=== PATIENT | female | born 1945 | race Caucasian/White ===

== ENCOUNTER → 2016-06-20 | Outpatient (CLI) | payer MEDICARE, BC ==
[~2016-06-20] MED LIST: ALEVE 220MG220 MG PO; BIOTIN1 MG PO; PRAVACHOL 40MG40 MG PO; PREDNISONE10 MG PO; WELLBUTRIN 75MG75 MG PO; ZYLOPRIM 300MG300 MG PO
== END ==
LOC: MC.RAD 08:17
DX: Z12.31 Encounter for screening mammogram for malignant neoplasm of breast (principal); Z80.3 Family history of malignant neoplasm of breast

== ENCOUNTER → 2016-08-08 | Outpatient (CLI) | payer MEDICARE, BC | LOC: COL.RAD 09:38 | DX: R10.32 Left lower quadrant pain (principal) ==

== ENCOUNTER → 2017-10-24 | Outpatient (CLI) | payer MEDICARE, BC ==
[~2017-10-24] VITALS: Ht 162.6 cm; Wt 89.2 kg
[~2017-10-24] MED LIST changes: +ASPIRIN E.C. 8181 MG PO; +COZAAR100 MG PO; +KLONOPIN 1MG1 MG PO; +PRILOSEC 20MG20 MG PO; +TYLENOL 8 HR PO; +VITAMIN B122500 MCG SL; +VITAMIN D 1001000 IU PO; +WELLBUTRIN XL300 M1 PO
[2017-10-24 06:40] VITALS: BP 129/85; PULSE 86
[2017-10-24 07:53] VITALS: BP 123/74; PULSE 86
[2017-10-24 07:54] VITALS: BP 116/76; PULSE 88
[2017-10-24 07:55] VITALS: BP 121/73; PULSE 89
== END ==
LOC: COL.CARD 06:21
DX: I25.89 Other forms of chronic ischemic heart disease (principal)
CPT/HCPCS: A9502; J2785

== ENCOUNTER 2017-10-31 06:09 | Day surgery (SDC) | payer MEDICARE, BC ==
[2017-10-31] VITALS (12 sets, daily range): BP systolic 100–145; BP diastolic 61–92; PULSE 67–86; TEMP 97.5
[~2017-10-31] VITALS: Ht 162.6 cm; Wt 88.8 kg
[~2017-10-31 06:09] MED LIST changes: +KLONOPIN 0.5MG0.5 MG PO; -KLONOPIN 1MG1 MG PO
[2017-10-31 07:32] LABS: HEMATOCRIT 38.9 % (37.0-47.0); HEMOGLOBIN 13.1 g/dl (12.5-16.0); MEAN CELL VOLUME 98 fl (80.0-100.0); MEAN CORPUSCULAR HEMOGLOBIN 33 pg (27.0-31.0); MEAN CORPUSCULAR HGB CONC 34 g/dl (33.0-37.0); MEAN PLATELET VOLUME 10.7 fl (7.4-10.4); PLATELET COUNT 221 K/mm3 (130-400); RED BLOOD COUNT 3.96 M/mm3 (4.10-5.30); REDCELL DISTRIBUTION WIDTH-CV 13.2 % (11.5-14.5)
[2017-10-31 07:34] LABS: INR 1.1 (0.8-3.0); PROTHROMBIN TIME 12.1 SECONDS (9.7-12.8)
[2017-10-31 07:41] LABS: CALCIUM 9.2 mg/dL (8.4-10.2); CREATININE, serum 0.73 mg/dL (0.52-1.25); POTASSIUM 3.9 mmol/L (3.4-5.0)
[2017-10-31] MEDS ORDERED: NITROSTAT0.4 MG/TAB SL (08:23)
== END 2017-10-31 15:23 | disposition home or self-care (01) ==
LOC: COL.CAR 06:09
PROVIDERS: Internal Medicine Cardiovascular Disease
DX: R07.9 Chest pain, unspecified (principal); R94.39 Abnormal result of other cardiovascular function study; E78.5 Hyperlipidemia, unspecified; I10 Essential (primary) hypertension; E66.9 Obesity, unspecified; I08.1 Rheumatic disorders of both mitral and tricuspid valves; K21.9 Gastro-esophageal reflux disease without esophagitis; Z88.2 Allergy status to sulfonamides; Z88.8 Allergy status to other drugs, medicaments and biological substances
CPT/HCPCS: C1760; C1894; J2250; J3010; Q9967

== ENCOUNTER → 2017-11-28 | Outpatient (CLI) | payer MEDICARE, BC ==
[~2017-11-28] MED LIST changes: +NITROSTAT0.4 MG/TAB SL
== END ==
LOC: MC.RAD 14:17
DX: Z12.31 Encounter for screening mammogram for malignant neoplasm of breast (principal)

== ENCOUNTER → 2019-01-12 | Outpatient (CLI) | payer MEDICARE, BC | LOC: MC.RAD 11:27 | DX: Z12.31 Encounter for screening mammogram for malignant neoplasm of breast (principal) ==

== ENCOUNTER → 2020-01-14 | Outpatient (CLI) | payer MEDICARE, BC | LOC: MC.RAD 08:45 | DX: Z12.31 Encounter for screening mammogram for malignant neoplasm of breast (principal) ==

== ENCOUNTER 2020-12-11 05:34 | Inpatient (IN) | payer MEDICARE, BC ==
[~2020-12-11] VITALS: Ht 162.6 cm; Wt 89.6 kg
[2020-12-11 06:01] LABS: BASO % 0.1 % (0.0-2.0); GRAN # 13.7 (1.4-6.5); HEMOGLOBIN 16.5 g/dl (12.5-16.0); LYMPH # 0.8 (1.2-3.4); LYMPH % 5.2 % (20.0-51.0); MEAN CELL VOLUME 98 fl (80.0-100.0); MEAN CORPUSCULAR HEMOGLOBIN 32 pg (27.0-31.0); MEAN CORPUSCULAR HGB CONC 33 g/dl (33.0-37.0); MEAN PLATELET VOLUME 10.9 fl (7.4-10.4); MONO # 0.8 (0.1-0.6); MONO % 5.2 % (1.7-9.3); PLATELET COUNT 255 K/mm3 (130-400); RED BLOOD COUNT 5.12 M/mm3 (4.10-5.30); REDCELL DISTRIBUTION WIDTH-CV 13.5 % (11.5-14.5)
[2020-12-11 06:14] LABS: ALBUMIN 4.6 gm/dL (3.5-5.0); BILIRUBIN,TOTAL 0.4 mg/dL (0.0-1.0); CALCIUM 9.5 mg/dL (8.4-10.2); CREATININE, serum 0.91 (0.52-1.25); POTASSIUM 4.1 mmol/L (3.4-5.0)
[2020-12-11 07:18] LABS: COLLECTION METHOD CLEAN CATCH
[2020-12-11 07:31] LABS: MUCOUS Present /lpf; PH 5 (5-8); SQUAMOUS EPITHELIAL 0-2 /hpf; URINE APPEARANCE Hazy; URINE BACTERIA None Seen /hpf; URINE BILIRUBIN Negative (NEGATIVE); URINE BLOOD 2+ (NEGATIVE); URINE COLOR Amber; URINE GLUCOSE Negative (NEGATIVE); URINE KETONE 1+ (NEGATIVE); URINE LEUKOCYTE ESTERASE Negative (NEGATIVE); URINE NITRATE Negative (NEGATIVE); URINE PROTEIN(semi-quant) 2+ (NEGATIVE); URINE RBC None Seen /hpf; URINE UROBILINOGEN Negative (NEGATIVE)
[2020-12-11] MEDS ORDERED: LIPITOR 10MG10 MG PO (15:05)
[2020-12-11] MEDS ORDERED: CELEBREX 1100 MG/CAP PO (15:06)
[2020-12-11] MEDS ORDERED: WELLBUTRIN SR100 M1 PO (15:06)
[2020-12-11] MEDS ORDERED: NATURAL E400 IU PO (15:09)
[2020-12-11 16:18] VITALS: BP 128/74; PULSE 94; TEMP 98.9
[2020-12-11 19:56] VITALS: BP 123/69; PULSE 93; TEMP 99.7
[2020-12-12 00:30] VITALS: BP 105/58; PULSE 90; TEMP 99.1
[2020-12-12 03:57] VITALS: BP 140/70; PULSE 81; TEMP 98.8
[2020-12-12 08:01] VITALS: BP 119/63; PULSE 84; TEMP 98.6
[2020-12-12 09:28] LABS: CALCIUM 8.1 mg/dL (8.4-10.2); CREATININE, serum 0.7 (0.52-1.25); POTASSIUM 3.7 mmol/L (3.4-5.0)
[2020-12-12 09:33] LABS: BASO % 0.4 % (0.0-2.0); EOS % 0.5 % (0-4.0); GRAN % 67.3 % (42.2-75.2); LYMPH # 1.5 (1.2-3.4); LYMPH % 20.1 % (20.0-51.0); MEAN CELL VOLUME 98 fl (80.0-100.0); MEAN CORPUSCULAR HEMOGLOBIN 33 pg (27.0-31.0); MEAN CORPUSCULAR HGB CONC 33 g/dl (33.0-37.0); MEAN PLATELET VOLUME 11.5 fl (7.4-10.4); MONO # 0.8 (0.1-0.6); MONO % 11.2 % (1.7-9.3); PLATELET COUNT 167 K/mm3 (130-400); REDCELL DISTRIBUTION WIDTH-CV 13.4 % (11.5-14.5)
[2020-12-12 12:03] VITALS: BP 113/71; PULSE 71; TEMP 98.5
[2020-12-12 17:31] VITALS: BP 128/71; PULSE 73; TEMP 98.7
[2020-12-12 20:30] VITALS: BP 131/73; PULSE 74; TEMP 98.9
[2020-12-13] VITALS (7 sets, daily range): BP systolic 118–137; BP diastolic 52–70; PULSE 68–86; TEMP 98–98.6
[2020-12-13 08:27] LABS: BASO % 0.4 % (0.0-2.0); EOS # 0.2 (0.0-0.7); EOS % 2.1 % (0-4.0); GRAN # 3.8 (1.4-6.5); GRAN % 54.5 % (42.2-75.2); HEMATOCRIT 46.5 % (37.0-47.0); LYMPH # 2.3 (1.2-3.4); LYMPH % 32.8 % (20.0-51.0); MEAN CELL VOLUME 97 fl (80.0-100.0); MEAN CORPUSCULAR HEMOGLOBIN 32 pg (27.0-31.0); MEAN CORPUSCULAR HGB CONC 33 g/dl (33.0-37.0); MEAN PLATELET VOLUME 11.3 fl (7.4-10.4); MONO # 0.7 (0.1-0.6); MONO % 9.8 % (1.7-9.3); PLATELET COUNT 265 K/mm3 (130-400); RED BLOOD COUNT 4.78 M/mm3 (4.10-5.30); REDCELL DISTRIBUTION WIDTH-CV 13.4 % (11.5-14.5)
[2020-12-13 08:31] LABS: HEMOGLOBIN 15.4 g/dl (12.5-16.0)
[2020-12-13 08:42] LABS: CALCIUM 9.2 mg/dL (8.4-10.2); CREATININE, serum 0.67 (0.52-1.25); POTASSIUM 3.6 mmol/L (3.4-5.0)
[2020-12-14 03:35] VITALS: BP 129/71; PULSE 72; TEMP 97.6
[2020-12-14 07:03] LABS: BASO % 0.3 % (0.0-2.0); EOS # 0.2 (0.0-0.7); EOS % 2.3 % (0-4.0); GRAN # 3.8 (1.4-6.5); GRAN % 54.8 % (42.2-75.2); HEMATOCRIT 37.3 % (37.0-47.0); LYMPH # 2.1 (1.2-3.4); LYMPH % 30.1 % (20.0-51.0); MEAN CELL VOLUME 98 fl (80.0-100.0); MEAN CORPUSCULAR HEMOGLOBIN 33 pg (27.0-31.0); MEAN CORPUSCULAR HGB CONC 33 g/dl (33.0-37.0); MEAN PLATELET VOLUME 11.6 fl (7.4-10.4); MONO # 0.8 (0.1-0.6); MONO % 12.1 % (1.7-9.3); PLATELET COUNT 226 K/mm3 (130-400); REDCELL DISTRIBUTION WIDTH-CV 13.4 % (11.5-14.5)
[2020-12-14 07:05] LABS: HEMOGLOBIN 12.4 g/dl (12.5-16.0)
[2020-12-14 07:12] LABS: CALCIUM 8.4 mg/dL (8.4-10.2); CREATININE, serum 0.6 (0.52-1.25)
[2020-12-14 09:00] VITALS: BP 144/83; PULSE 74; TEMP 98.5
[2020-12-14 11:19] VITALS: BP 148/80; PULSE 80; TEMP 98
== END 2020-12-14 14:37 | disposition home health service (06) | DRG 872 ==
LOC: COL.ER 05:34 → MEDICAL 08:16
PROVIDERS: Personal Emergency Response Attendant; Physician Assistant; ADMIT Student in an Organized Health Care Education/Training Program
DX: A41.9 Sepsis, unspecified organism (principal); A04.5 Campylobacter enteritis; I10 Essential (primary) hypertension; F41.9 Anxiety disorder, unspecified; E87.6 Hypokalemia; E78.5 Hyperlipidemia, unspecified; M10.9 Gout, unspecified; K21.9 Gastro-esophageal reflux disease without esophagitis; F32.9 Major depressive disorder, single episode, unspecified; R53.1 Weakness; E83.42 Hypomagnesemia; Z20.822 Contact with and (suspected) exposure to COVID-19; Z79.82 Long term (current) use of aspirin; Z88.2 Allergy status to sulfonamides
CPT/HCPCS: 99222-AI; 99232-AI; 99239; J0456; J0696; J1644; J2405; J2550; J3475; J7030; J7050; Q9967

== ENCOUNTER 2021-01-12 10:30 | Outpatient (RCR) | payer MEDICARE, BC ==
[~2021-01-12 10:30] MED LIST changes: +CELEBREX 1100 MG/CAP PO; +LIPITOR 10MG10 MG PO; +NATURAL E400 IU PO; +WELLBUTRIN SR100 M1 PO
== END 2021-01-12 11:16 | disposition home or self-care (01) ==
LOC: WSPT 10:30
DX: A41.9 Sepsis, unspecified organism (principal); R65.20 Severe sepsis without septic shock; A04.5 Campylobacter enteritis

== ENCOUNTER → 2022-08-28 | Outpatient (CLI) | payer MEDICARE, BC | LOC: MC.RAD 13:04 | DX: Z12.31 Encounter for screening mammogram for malignant neoplasm of breast (principal) ==

== ENCOUNTER → 2023-09-01 | Outpatient (CLI) | payer MEDICARE, BC | LOC: MC.RAD 09:31 | DX: Z12.31 Encounter for screening mammogram for malignant neoplasm of breast (principal) ==